=== PATIENT | female | born 1985 | race Caucasian/White ===

== ENCOUNTER → 2016-05-08 | Outpatient (CLI) | payer BC, MEDICAID | END | disposition home or self-care (01) | LOC: RAD.S 05-05 16:26 | DX: S09.93XA Unspecified injury of face, initial encounter (principal); M81.0 Age-related osteoporosis without current pathological fracture; G93.89 Other specified disorders of brain; Z98.2 Presence of cerebrospinal fluid drainage device; W20.8XXA Other cause of strike by thrown, projected or falling object, initial encounter ==

== ENCOUNTER 2016-07-20 21:27 | Emergency (ER) | payer BC, MEDICAID ==
--- NOTE | 2016-07-21 19:22 | ER ---
ADMIT: 07/20/2016 RM/LOC: ER [facility] MR#: [id number] [address] [id number] JENNIFER LORENZO J [address] [place] [address] Emergency Room Report SEX: F AGE: 30 : 1985 DATE: 07/20/2016 HISTORY OF PRESENT ILLNESS: The patient is a cerebral palsy patient, who was picked up today by law enforcement instructor, and she heard a hip pop. This happened about 12 hours ago. They want to make sure she does not have a fracture. 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 MEDICATIONS: See T-sheet. PHYSICAL EXAMINATION: Upon examination, she does have some bruising in the left groin area and left lateral hip. She is unable to ambulate at this time due to the pain and rest of the physical examination is negative, so I went ahead and did a CT scan, which does not show any fracture. Insulator Technician advised Motrin crushed 600 mg given for pain control. Follow up with primary provider. JEFFERY Cespedes / Isaias Byers MD / juan JOB #: [id number] CC: Isaias Byers MD, Attending Physician Duy Fisher MD, Family Physician
== END 2016-07-20 23:50 | disposition home or self-care (01) ==
LOC: ER 21:27
DX: S30.1XXA Contusion of abdominal wall, initial encounter (principal); M25.552 Pain in left hip; G80.9 Cerebral palsy, unspecified; M81.0 Age-related osteoporosis without current pathological fracture; X58.XXXA Exposure to other specified factors, initial encounter